=== PATIENT | female | born 1930 | race Asian ===

== ENCOUNTER 2016-06-16 02:57 | Inpatient (IN) | payer MEDICARE, OTHER ==
[~2016-06-16] VITALS: Ht 152.4 cm; Wt 47.5 kg
[2016-06-16] MEDS ORDERED: cloNIDine HCL 0.1 MG TAB PO ONE (03:15)
[2016-06-16 03:37] LABS: Basophils # (auto) 0 uL; Basophils % (auto) 0.2 % (0.0-2.0); Eosinophils # (auto) 0.5 uL; Eosinophils % (auto) 11.9 % (0.0-7.0); Hemoglobin 11.8 g/dL (12.2-16.2); Lymphocytes # (auto) 0.8 uL; Lymphocytes % (auto) 19.7 % (10.0-50.0); Mean Corpuscular Hemoglobin 29.8 pg (28.0-32.0); Mean Corpuscular Hgb Conc. 32.8 g/dL (32.0-36.0); Mean Corpuscular Volume 90.9 fL (80.0-100.0); Mean Platelet Volume 9.9 fL (7.4-10.4); Monocytes # (auto) 0.3 uL; Monocytes % (auto) 7.8 % (0.0-12.0); Neutrophils # (auto) 2.6 uL; Neutrophils % (auto) 60.4 % (37.0-80.0); Platelet Count (auto) 123 10^3/uL (140-450); Red Cell Distribution Width 14.4 % (11.6-16.0); White Blood Cell 4.3 10^3/uL (4.4-10.8)
[2016-06-16 03:56] LABS: Albumin 3.4 g/dL (3.4-5.0); BUN/Creatinine Ratio 22.9; Magnesium 2.3 mg/dL (1.6-2.6); Potassium 3.8 mmol/L (3.5-5.1)
[2016-06-16 03:58] LABS: Bilirubin, Total 0.3 mg/dL (0.2-1.0); Total Protein 7.3 g/dL (6.4-8.2)
[2016-06-16 04:03] LABS: B-Type Natriuretic Peptide 26.82 pg/mL (0-100)
[2016-06-16 04:09] LABS: Temperature: 22.4 C (20.0-25.0)
[2016-06-16] MEDS ORDERED: SODIUM CHLORIDE 0.9% 500 ML IV ONE ×2 (08:00→11:45)
[2016-06-16] MEDS ORDERED: BRIN1SUS EACHEYE (13:57)
[2016-06-16] MEDS ORDERED: ATO40T PO (13:57)
[2016-06-16] MEDS ORDERED: RANI300C7 PO (13:57)
[2016-06-16] MEDS ORDERED: TIMO0.5S3 EACHEYE (13:57)
[2016-06-16] MEDS ORDERED: LEVO75TA6 PO (13:57)
[2016-06-16] MEDS ORDERED: LATA0.0015 EACHEYE (13:57)
[2016-06-16] MEDS ORDERED: VALS40TA2 PO (13:57)
[2016-06-16] MEDS ORDERED: METF-312 PO (13:57)
[2016-06-16] MEDS: SODIUM CHLORIDE 0.9% 1,000 ML IV SCH (14:14)
[2016-06-16] MEDS ORDERED: LACTULOSE 20Gm/30ML SOLN PO PRN (14:15)
[2016-06-16] MEDS ORDERED: NITROGLYCERIN 0.4 MG SL TAB SL PRN (14:15)
[2016-06-16] MEDS ORDERED: ACETAMINOPHEN 500 MG TAB PO PRN (14:15)
[2016-06-16] MEDS ORDERED: DEXTROSE (50%) 50ML SYRG IV PRN (14:15)
[2016-06-16] MEDS ORDERED: TEMAZEPAM 15 MG CAP PO PRN (14:15)
[2016-06-16] MEDS ORDERED: LORazepam 0.5 MG TAB PO PRN (14:15)
[2016-06-16] MEDS ORDERED: HYDROcodone-ACET 5/325MG TAB PO PRN (14:15)
[2016-06-16] MEDS ORDERED: MORPHINE SULF INJ 2 MG/ML SYRINGE 1ML IV PRN ×2 (14:15)
[2016-06-16] MEDS ORDERED: PROMETHAZINE HCL 25 MG/ML 1ML IV PRN (14:15)
[2016-06-16] MEDS ORDERED: ENOXAPARIN SOD 40 MG/0.4 ML SYRINGE SC ONE (14:30)
[2016-06-16] MEDS ORDERED: ASPirin 81 mg TAB PO ONE (14:30)
[2016-06-16 15:33] LABS: INR 1.06 (0.9-1.15); Partial Thromboplastin Time 27.1 sec (22.64-33.71); Prothrombin Time 10.9 sec (9.37-12.3)
[2016-06-16 15:49] LABS: Temperature: 22.5 C (20.0-25.0)
[2016-06-16] MEDS: ACCU-CHEK COMFORT CURVE STRIP VI SCH ×3 (17:00→21:45)
[2016-06-16] MEDS: InsuLIN REG 1unit/0.01ml Soln (100units/ml) SC SCH ×2 (17:00→21:45)
[2016-06-16 17:07] LABS: Urine Bilirubin Negative (Negative); Urine Blood TRACE /uL (Negative); Urine Color Yellow (Yellow); Urine Glucose Normal (Normal); Urine Ketone Negative (Negative); Urine Nitrite Negative (Negative); Urine RBC 1 /hpf (0 - 4); Urine Urobilinogen Normal (Negative); Urine pH 6.5 (5.0-8.0)
[2016-06-16] MEDS: ATORVASTATIN 20 MG TAB PO SCH (21:45)
[2016-06-16] MEDS: TIMOLOL MAL 0.5% OPTH(EYE) SOL 5ML EACHEYE SCH (22:00)
[2016-06-16] MEDS: BRINZOLAMIDE EYE EACHEYE SCH (22:00)
[2016-06-16] MEDS ORDERED: ATORVASTATIN 20 MG TAB PO SCH (22:00)
[2016-06-17] MEDS: SODIUM CHLORIDE 0.9% 1,000 ML IV SCH (03:42)
[2016-06-17] MEDS: LEVOTHYROXINE SODIUM 50 MCG TAB PO SCH (06:23)
[2016-06-17] MEDS: InsuLIN REG 1unit/0.01ml Soln (100units/ml) SC SCH ×4 (06:23→21:57)
[2016-06-17] MEDS: ACCU-CHEK COMFORT CURVE STRIP VI SCH ×4 (06:24→21:57)
[2016-06-17 06:34] LABS: Basophils # (auto) 0 uL; Basophils % (auto) 0.1 % (0.0-2.0); Eosinophils # (auto) 0.5 uL; Eosinophils % (auto) 12.9 % (0.0-7.0); Hemoglobin 10.3 g/dL (12.2-16.2); Lymphocytes # (auto) 0.8 uL; Lymphocytes % (auto) 21.9 % (10.0-50.0); Mean Corpuscular Hemoglobin 29.9 pg (28.0-32.0); Mean Corpuscular Hgb Conc. 32.2 g/dL (32.0-36.0); Mean Platelet Volume 9.9 fL (7.4-10.4); Monocytes # (auto) 0.3 uL; Monocytes % (auto) 9.4 % (0.0-12.0); Neutrophils # (auto) 1.9 uL; Neutrophils % (auto) 55.7 % (37.0-80.0); Platelet Count (auto) 85 10^3/uL (140-450); Red Cell Distribution Width 13.5 % (11.6-16.0); White Blood Cell 3.5 10^3/uL (4.4-10.8)
[2016-06-17 06:38] LABS: Albumin 2.6 g/dL (3.4-5.0); BUN/Creatinine Ratio 19.4; Bilirubin, Total 0.5 mg/dL (0.2-1.0); Calcium 7.4 mg/dL (8.5-10.1); Potassium 3.5 mmol/L (3.5-5.1); Total Protein 5.3 g/dL (6.4-8.2)
[2016-06-17] MEDS ORDERED: PATIENTS OWN MEDICATION (Atorvastatin Calcium (Lipitor) 1 TAB) PO SCH ×2 (10:00)
[2016-06-17] MEDS ORDERED: ENOXAPARIN SOD 40 MG/0.4 ML SYRINGE SC SCH (10:00)
[2016-06-17] MEDS ORDERED: ASPirin 81 mg TAB PO SCH (10:00)
[2016-06-17] MEDS ORDERED: ENOXAPARIN SOD 30 MG/0.3 ML SYRINGE SC SCH (10:00)
[2016-06-17] MEDS: BRINZOLAMIDE EYE EACHEYE SCH ×2 (10:20→21:57)
[2016-06-17] MEDS: VALSARTAN 80 MG TAB PO SCH (10:30)
[2016-06-17] MEDS: TIMOLOL MAL 0.5% OPTH(EYE) SOL 5ML EACHEYE SCH ×2 (10:30→21:57)
[2016-06-17] MEDS: PANTOPRAZOLE 40 MG TAB PO SCH (10:30)
[2016-06-17 12:50] VITALS: BP 138/58
[2016-06-17 16:59] VITALS: BP 141/74
[2016-06-17] MEDS: LATANOPROST 0.005 % OPTH(EYE) SOL 2.5ML EACHEYE SCH (17:31)
[2016-06-17] MEDS: ATORVASTATIN 20 MG TAB PO SCH (21:55)
[2016-06-17 22:00] VITALS: BP 121/58
[2016-06-18 05:18] VITALS: BP 131/60
[2016-06-18] MEDS: ACCU-CHEK COMFORT CURVE STRIP VI SCH ×4 (06:13→22:00)
[2016-06-18] MEDS: LEVOTHYROXINE SODIUM 50 MCG TAB PO SCH (06:13)
[2016-06-18] MEDS: InsuLIN REG 1unit/0.01ml Soln (100units/ml) SC SCH ×4 (06:13→22:00)
[2016-06-18 09:24] VITALS: BP 155/81
[2016-06-18] MEDS: PANTOPRAZOLE 40 MG TAB PO SCH (09:53)
[2016-06-18] MEDS: VALSARTAN 80 MG TAB PO SCH (09:54)
[2016-06-18] MEDS: BRINZOLAMIDE EYE EACHEYE SCH ×2 (09:55→22:00)
[2016-06-18] MEDS: TIMOLOL MAL 0.5% OPTH(EYE) SOL 5ML EACHEYE SCH ×2 (10:00→22:00)
[2016-06-18 12:04] VITALS: BP 149/68
[2016-06-18 17:33] VITALS: BP 139/70
[2016-06-18] MEDS: LATANOPROST 0.005 % OPTH(EYE) SOL 2.5ML EACHEYE SCH (18:03)
[2016-06-18 22:00] VITALS: BP 120/55
[2016-06-18] MEDS: ATORVASTATIN 20 MG TAB PO SCH (22:50)
[2016-06-19 05:02] VITALS: BP 157/69
[2016-06-19 06:10] LABS: Calcium 8.2 mg/dL (8.5-10.1); Magnesium 2.3 mg/dL (1.6-2.6); Potassium 3.5 mmol/L (3.5-5.1)
[2016-06-19 06:16] LABS: BUN/Creatinine Ratio 16.5
[2016-06-19] MEDS: ACCU-CHEK COMFORT CURVE STRIP VI SCH ×2 (06:32→11:13)
[2016-06-19] MEDS: LEVOTHYROXINE SODIUM 50 MCG TAB PO SCH (06:32)
[2016-06-19] MEDS: InsuLIN REG 1unit/0.01ml Soln (100units/ml) SC SCH ×2 (06:33→11:25)
[2016-06-19 08:18] VITALS: BP 151/78
[2016-06-19] MEDS: PANTOPRAZOLE 40 MG TAB PO SCH (10:00)
[2016-06-19] MEDS: BRINZOLAMIDE EYE EACHEYE SCH (10:00)
[2016-06-19] MEDS: VALSARTAN 80 MG TAB PO SCH (11:08)
[2016-06-19] MEDS: TIMOLOL MAL 0.5% OPTH(EYE) SOL 5ML EACHEYE SCH (11:08)
[2016-06-19 12:48] VITALS: BP 150/69
[2016-06-19 15:09] VITALS: BP 150/69
== END 2016-06-19 16:28 | disposition home or self-care (01) | DRG 280 ==
LOC: ER 03:01 → TELE 03:02 → TELE-E-ADS 06-17 13:08 → TELE-EAST 06-17 15:30
PROVIDERS: ADMIT Internal Medicine; ATTEND Internal Medicine
DX: I21.4 Non-ST elevation (NSTEMI) myocardial infarction (principal); I50.31 Acute diastolic (congestive) heart failure; G93.40 Encephalopathy, unspecified; E03.9 Hypothyroidism, unspecified; E11.65 Type 2 diabetes mellitus with hyperglycemia; I11.0 Hypertensive heart disease with heart failure; E78.5 Hyperlipidemia, unspecified; D64.9 Anemia, unspecified; E05.90 Thyrotoxicosis, unspecified without thyrotoxic crisis or storm; D69.6 Thrombocytopenia, unspecified; Z79.899 Other long term (current) drug therapy; Z87.42 Personal history of other diseases of the female genital tract; Z79.82 Long term (current) use of aspirin; Z82.49 Family history of ischemic heart disease and other diseases of the circulatory system
CPT/HCPCS: 36415; 70450; 71010; 80048; 80053; 80061; 81001; 82270; 82550; 82607; 82746; 82962; 83036; 83735; 83880; 84443; 84484; 85025; 85049; 85610; 85652; 85730; 86141; 93005; 93306; 96360; 96361; 96372; 97001; 97116; 97530